=== PATIENT | female | born 1970 | race African-American/Black ===

== ENCOUNTER 2020-12-01 13:31 | Emergency (ER) | payer SELFPAY ==
[~2020-12-01] VITALS: Ht 157.5 cm; Wt 93.2 kg
[2020-12-01 13:34] VITALS: BP 163/104
== END 2020-12-01 13:40 | disposition home or self-care (01) ==
LOC: EMS 13:40
DX: R10.9 Unspecified abdominal pain (principal); Z53.21 Procedure and treatment not carried out due to patient leaving prior to being seen by health care provider